=== PATIENT | female | born 1955 | race Caucasian/White ===

== ENCOUNTER 2019-05-17 07:57 | Day surgery (SDC) | payer OTHER ==
[~2019-05-17 07:57] MED LIST: ACETAMINOPHEN 500 MG TABLET PO ONE; CELECOXIB 100 MG CAPSULE PO ONE; CLINDAMYCIN PHOS/D5W 900MG 900 MG/50 ML BAG IVPB ONE; FAMOTIDINE 20MG TABLET PO ONE; METOCLOPRAMIDE 10 MG TABLET PO ONE; SCOPOLAMINE 1 PATCH TDSY TD ONE; VANCOMYCIN 1GM/200ML PREMIX 1 GM/200 ML PIGGYBACK IVPB ONE
[2019-05-17] MEDS ORDERED: LIDOCAINE 2% MDV (20MG/ML) 20ML VIAL IV ONE (07:58)
[2019-05-17] MEDS ORDERED: MIDAZOLAM HCL 2MG/2ML VIAL IV ONE (07:58)
[2019-05-17] MEDS ORDERED: PROPOFOL 10 MG/ML VIAL IV ONE (07:58)
[2019-05-17] MEDS ORDERED: ROPIVACAINE HCL (NAROPIN) /PF 5MG/ML 20ML VIAL IV ONE (07:58)
[2019-05-17] MEDS ORDERED: KETOROLAC 30 MG/ML VIAL IVP ONE (07:58)
[2019-05-17] MEDS ORDERED: *PACU ONLY* KETAMINE HCL 10 MG/ML (20ML) VIAL IV ONE (07:58)
[2019-05-17] MEDS ORDERED: EPHEDRINE SULFATE 50 MG/ML ML IV ONE (07:58)
[2019-05-17] MEDS ORDERED: DEXAMETHASONE 4 MG/ML 1ML VIAL IVP ONE (07:58)
[2019-05-17] MEDS ORDERED: ACETAMINOPHEN 325 MG TAB PO PRN (08:06)
[2019-05-17] MEDS ORDERED: ONDANSETRON HCL IV 4 MG/2 ML VIAL IVP PRN (08:06)
[2019-05-17] MEDS ORDERED: HYDROCODONE/APAP 5/325MG TABLET PO PRN (08:06)
[2019-05-17] MEDS ORDERED: DIPHENHYDRAMINE HCL 25 MG CAPSULE PO PRN (08:06)
[2019-05-17] MEDS ORDERED: AL HYDROX/MAG HYDROX 30ML UD PO PRN (08:06)
[2019-05-17] MEDS ORDERED: METOCLOPRAMIDE HCL 10 MG/2 ML VIAL IVP PRN (08:06)
[2019-05-17] MEDS ORDERED: BISACODYL 10 MG SUPP RC PRN (08:06)
[2019-05-17] MEDS ORDERED: ACETAMINOPHEN W/ CODEINE 300MG/30MG TABLET PO PRN ×2 (08:06)
[2019-05-17] MEDS ORDERED: NALOXONE 0.4 MG/1 ML VIAL IVP PRN (08:06)
[2019-05-17] MEDS ORDERED: HYDROMORPHONE HCL 2 MG/ML VIAL IM PRN ×2 (08:06)
[2019-05-17] MEDS ORDERED: MAGNESIUM HYDROXIDE 30 ML UDC PO PRN (08:06)
[2019-05-17] MEDS ORDERED: TRAMADOL HCL 50 MG TABLET PO PRN ×2 (08:06)
[2019-05-17] MEDS ORDERED: ZOLPIDEM TARTRATE 5 MG TABLET PO PRN (08:06)
[2019-05-17] MEDS ORDERED: ACETAMINOPHEN W/ CODEINE 300MG/60MG TABLET PO PRN (08:06)
[2019-05-17] MEDS ORDERED: KETOROLAC 30 MG/ML VIAL IVP PRN (08:06)
[2019-05-17] MEDS ORDERED: HYDROCODONE/APAP 7.5/325MG TABLET PO PRN (08:06)
[2019-05-17] MEDS ORDERED: DEXTROSE 5 % AND 0.9 % NACL 1,000 ML IV PRN (08:06)
[2019-05-17] MEDS ORDERED: PROMETHAZINE HCL 12.5 MG in 0.9 % SODIUM CHLORIDE 100ML 50 ML IVPB PRN (08:06)
[2019-05-17 08:54] LABS: ABO GROUP O; ANTIBODY SCREEN NEGATIVE (NEGATIVE); RH TYPE POSITIVE
[2019-05-17] MEDS ORDERED: RINGERS SOLUTION,LACTATED 1,000 ML IV ONE ×2 (09:11→12:54)
[2019-05-17] MEDS ORDERED: BUPIVACAINE 0.5% W/EPI MPF 30 ML VIAL SQ ONE (10:57)
[2019-05-17] MEDS ORDERED: TRANEXAMIC ACID 1,000 MG/10 ML ML IU ONE (10:58)
[2019-05-17] MEDS ORDERED: BUPIVACAINE LIPOSOME 266MG/20ML VIAL IU ONE (10:59)
[2019-05-17] MEDS ORDERED: VANCOMYCIN HCL 1 GM VIAL IU ONE (10:59)
[2019-05-17] MEDS ORDERED: TRANEXAMIC ACID 1,000 MG/10 ML ML IVPB ONE (11:00)
[2019-05-17] MEDS ORDERED: VANCOMYCIN HCL 1 GM VIAL IR ONE (11:00)
[2019-05-17] MEDS: HYDROCODONE/APAP 5/325MG TABLET PO PRN ×2 (14:40→20:42)
[2019-05-17] MEDS: AMLODIPINE BESYLATE 5MG TAB PO SCH (14:41)
[2019-05-17] MEDS: HYDROCHLOROTHIAZIDE 25 MG TABLET PO SCH (14:41)
--- NOTE | 2019-05-17 14:41 | Operative Note ---
DATE OF SURGERY: 05/17/2019 PREOPERATIVE DIAGNOSIS: END STAGE RIGHT KNEE ARTHROSIS. POSTOPERATIVE DIAGNOSIS: END STAGE RIGHT KNEE ARTHROSIS. OPERATION: RIGHT TOTAL KNEE ARTHROPLASTY. SURGEON: Julio César Swan M.D. ANESTHESIA: Spinal. ANESTHESIA PROVIDER: BETH Sanchez CRNA COMPLICATIONS: None. BLOOD LOSS: Minimal. OPERATIVE FINDINGS: [id number] arthrosis. COMPONENT PLACED: 2 gram Vancomycin cemented Francois [employer] Nephew Journey II Oxinium a size 5 femoral component, a size 5 tibial baseplate, 11 mm thick tibial poly insert, and 29 mm cemented patellar component. INDICATIONS: This is a 63-year-old female with end stage knee arthrosis who is scheduled for the procedure above. I explained all risks and benefits in detail for the diagnosis and procedure including, but not limited to infection, nerve injury, vessel injury, persistent pain, stiffness, numbness, tingling in the knee, periprosthetic fracture, need for resection arthroplasty if components become infected or loose, nerve injury, vessel injury, blood clot and need for anticoagulation to prevent blood clots and risks associated with the use of these medications. All of her questions were answered. Rehab course was outline. She agreed to proceed. PROCEDURE: The patient was brought to the Operating Room, placed in a supine position, prepped for surgery. Spinal anesthesia was induced. The right lower extremity and knee were prepped and draped in sterile fashion. The right knee was prepped again with ChloraPrep after it was draped. Intraoperative timeout was performed. Next the leg was exsanguinated. again no tourniquet was used, and an anterior incision was marked out and infiltrated with 0.5% Marcaine with Epinephrine, Exparel, and tranexamic acid mixture which were used throughout the entire course of the case and we also used Aquamantys electrocautery during the entire case at different levels. Next, the skin and subcutaneous tissues were dissected down and incised the capsule along the medial border of the patella to the tibial tubercle. Incised the vastus medialis in line with its fibers using the medial lateral approach. Partially resected the retropatellar fat pad. Elevated the capsule subperiosteally and medially. We flexed the knee. She had severe [id number] arthrosis, and removed any remaining meniscus from the ACL. Drilled the intracondylar drill holes, inserted the intramedullary guide benson, a 6-degree cutting block, aligned off the distal femoral condyles and pinned it in the +2 mm position and cut the distal femoral condyles. We then placed a sizing jig on the distal femoral condyle and sized it to be right on size 5. Through the previously placed pin holes, we placed a 5-in-1 cutting jig, we centered it, pinned it and removed osteophytes off the periphery and then recentered it and referenced for an anterior cut and cut the anterior cut, it was a good cut and then we pinned it and cut the remainder of chamfer cuts in the usual fashion. We placed a size 5 femoral component, centered it, pinned it, removed osteophytes off the periphery, had a good fit, inserted a resection collet, and reamed out and box Osteomed out the cruciate bone block. Next attention was turned to the tibia. Seated the spikes in the tubercular groove after exposing the tibia 2 fingerbreadths distally in reference for our 7 mm cut off the lateral plateau. We pinned the cutting jig provisionally with anterior and posterior pins, and then rechecked the alignment cutting jig and drop benson centered on the tibial anatomic access and then cross pinned the cutting jig completing fixation at the tibia. Next we removed osteophytes off the posterior femoral condyle. Checked the flexion/extension gaps, basically sized it up to a size 11 mm thick polyp insert, this allowed for 1-2 mm of varus/valgus laxity and flexion/extension. Overall alignment cuts in extension was anatomic in valgus orientation with alignment benson centered on the hip joint and ankle joint. Next we took the knee in flexion, we sized the tibial baseplate to be a size 5. We replaced all trial components, set the rotation tibial baseplate again extension using the alignment benson centered on the hip joint and ankle joint. Marked all pen ramirez off the laser ramirez on the tibial cortex. Attention was turned to the patella, measured the patella to be 21 mm, set the cutting jig at 12 mm to allow for a 9 mm thick poly insert and cut the patella, and it was right on 12. We chamfered off the lateral patella facet sized to be 29 and medialized as much as possible, drilled three peg holes, placed a trial patellar component and then mixed cement. Range of motion at the patella tracked nicely handsfree, full extension and flexion to 130-140 degrees, again symmetric flexion/extension gap. Next we took the knee in flexion, seated the tibial baseplate off the previously placed ramirez, pinned it and then drilled out and keel punched the keel hole. Next we placed the bone plug in the femoral canal hole and we cauterized the posterior capsule again using Aquamantys and then exposed the proximal tibia and dried it with a CarboJet dryer and then impacted the tibial bone surfaces with cement and then impacted down the tibial component removing excess cement and then the femoral components in the same fashion and removed excess cement. We then placed the trial tibial poly liner, held the knee in extension, and impacted the patellar components and held it there, and clamped down patella component until the cement hardened. We took the knee in flexion, districted the knee with the bone hook and sponge, removed all trial components, irrigated copiously using Aquamantys and we injected the posterior capsule and medial lateral with our mixture again using small sticks, several sticks of the medication and then inserted the tibial poly insert, verified it was interlocked medially and laterally and found the range of motion to be the same. Irrigated copiously, closed the knee in flexion using running #2 Quill suture, closed the skin deep with 2-0 Vicryl, and a LEIGH dressing was applied with an JAY wrap. The patient tolerated the procedure well. No intraoperative complications. Sponge, needle, and blade counts corrects. Recovery Room stable. Neurovascular intact. She was discharged to the floor and then discharged home tomorrow. Follow-up in two weeks. JOB NUMBER: [id number] [facility]
--- NOTE | 2019-05-17 15:15 | Rehab Evaluation ---
Patient Information - Patient Information Diagnosis: R knee DJD Ordered Treatment: PT Evaluate and Treat Status: Initial Evaluation Surgery: Yes (R TKA) Date of Surgery: 05/17/19 Past Medical/Surgical Hx: PAST MEDICAL/SURGICAL HISTORY Past Surgical History SOCORRO APPY C SECTIONS X'S 2 CSCOPES BREAST BX PMH - Respiratory Hx Respiratory Disorders Yes Hx Bronchitis Yes: HX OF Hx Pneumonia Yes: HX OF Comment: PT SNORES PER PMH - Cardiovascular Hx Cardiovascular Disorders Yes Hx Hypertension Yes: FAIR CONTROL ON MEDS Exercise Tolerance Poor PMH - Neuro Hx Neurological Disorders Yes Hx Headaches Yes: OCCASS PMH - GI Hx Gastrointestinal Disorders Yes Hx Gastroesophageal Reflux Yes: CONTROLLED WITH MEDS PMH - Hx Genitourinary Disorders Yes Hx Bladder Problem Yes: "WEAK" PMH - Endocrine Hx Endocrine Disorders No PMH - Musculoskeletal Hx Musculoskeletal Disorders Yes Hx Arthritis Yes: KNEES, HANDS, SHOULDERS PMH - Psych Hx Psychiatric Problems Yes Hx Anxiety Yes Hx Depression Yes PMH - Hematology/Oncology Hx Hematology/Oncology Yes Disorders Hx Anemia Yes: IN THE PAST Hx Bruising Yes: BRUISES EASILY Premorbid Status: Detail (The patient was independent with all mobility prior to surgery.) Social History: Detail (The patient lives with spouse in a one story house with one step at the enterance and no handrails. The bathroom is equipped with: walk in shower with a tub seat and hand held shower head and a standard height toilet. No grab bars are presetn in the bathroom. The patient has a front wheeled walker and a standard cane.) Precautions: Point, Fall, Other (WBAT on the R LE) - Time With Patient Total Time Spent With Patient (Min): 30 Treatment Procedures: Detail (Initial Evaluation, low complexity.) Subjective Information - Subjective Information Per Patient (The patient had no complaints of pain.) Objective Data - Mental Status Patient Orientation: Oriented x3 - Visual Perception Appears within normal limits for therapeutic activities - ROM Not within normal limits (Patient's R knee AROM was limited s/p surgery. All other LE AROM was WNL.) - Strength/Tone Not within normal limits (The patient's LE strength was not tested s/p however was within functional limits.) - Bed Mobility Independent (The patient was independent with supine to and from sit transfer and scooting up in bed.) - Transfers Independent (The patient was independent with sit to and from stand transfer and toilet transfer.) - Balance Balance Sitting: Good Balance Standing: Good - Sensation Intact - Gait Detail (The patient ambulated with front wheeled walker a distance of 100 feet x 1 with supervision for safety WBAT on the R LE.) Therapy Assessment - Therapy Assessment Detail (The patient was independent with bed mobility and transfers and required supervision for safety only with ambulation. The patient will be seen tomorrow for 1 to 2 sessions for completion of PT inpt. goals.) Problem List - Problem List Physical Therapy Problem List: Detail ( Decreased R knee AROM and R LE strength) Goals - Goals Physical Therapy Goals: 1) The patient will ambulate on stairs with supervision for safety using proper technique. 2) The patient will be independent with TKA HEP. Prognosis - Prognosis Good Plan - Plan Physical Therapy Plan: PT 1-2 sessions for gait training and instruction in TKA HEP.
[2019-05-17] MEDS ORDERED: LOSARTAN POTASSIUM 25 MG TABLET PO SCH (22:00)
[2019-05-17] MEDS: VANCOMYCIN 1GM/200ML PREMIX 1 GM/200 ML PIGGYBACK IVPB SCH (22:08)
[2019-05-17] MEDS: FERROUS SULFATE 325 MG TAB PO SCH (22:15)
[2019-05-17] MEDS: DOCUSATE SODIUM 100 MG CAPSULE PO SCH (22:15)
[2019-05-18 06:41] LABS: HEMATOCRIT 37.4 % (35.0-47.0); HEMOGLOBIN 11.9 gm/dl (11.6-16.0)
[2019-05-18] MEDS ORDERED: PANTOPRAZOLE SODIUM 40 MG TABLET PO SCH (07:00)
[2019-05-18] MEDS: AMLODIPINE BESYLATE 5MG TAB PO SCH (09:21)
[2019-05-18] MEDS: HYDROCODONE/APAP 5/325MG TABLET PO PRN (09:21)
[2019-05-18] MEDS: HYDROCHLOROTHIAZIDE 25 MG TABLET PO SCH (09:22)
[2019-05-18] MEDS: FERROUS SULFATE 325 MG TAB PO SCH (09:22)
[2019-05-18] MEDS: DOCUSATE SODIUM 100 MG CAPSULE PO SCH (09:22)
--- NOTE | 2019-05-18 09:49 | Physical Therapy Tx Note ---
Physical Therapy Tx Note - Treatment Note Tolerated: Good Total Time Spent With Patient: 20 Physical Therapy Tx Note: Detail (The patient was in bed when PT arrived and complaining of level 8 pain behind R knee. The patient ambulated with front wheeled walker a distance of 100 feet x 1 independently WBAT on the R LE. The patient ambulated on 3 steps with use of one railing and folded walker with supervision for safety. The patient completed TKA HEP: ankle pumps, quad sets, gluteal sets, hamstring sets, SLR, seated heel slides.) Physical Therapy Problem List: Detail ( Decreased R knee AROM and R LE strength) Physical Therapy Goals: 1) The patient will ambulate on stairs with supervision for safety using proper technique. 2) The patient will be independent with TKA HEP. Physical Therapy Plan: PT 1-2 sessions for gait training and instruction in TKA HEP.
--- NOTE | 2019-05-18 09:51 | Physical Therapy Tx Note ---
Physical Therapy Tx Note - Treatment Note Tolerated: Good Physical Therapy Tx Note: Detail (addendum to previous note. The patient has met all inpt. PT goals and is discharged from inpt. PT.) Physical Therapy Problem List: Detail ( Decreased R knee AROM and R LE strength) Physical Therapy Goals: 1) The patient will ambulate on stairs with supervision for safety using proper technique.(Goal Met). 2) The patient will be independent with TKA HEP.(Goal Met) Physical Therapy Plan: The patient has met all inpt. PT goals and is discharged from inpt. PT.
[2019-05-18] MEDS ORDERED: ATENOLOL 50 MG TABLET PO SCH (10:00)
[2019-05-18] MEDS ORDERED: RIVAROXABAN 10 MG TABLET PO SCH (10:00)
[2019-05-18] MEDS ORDERED: LOSARTAN POTASSIUM 100 MG TABLET PO SCH (10:00)
[2019-05-18] MEDS ORDERED: CELECOXIB 100 MG CAPSULE PO SCH (10:00)
[2019-05-18] MEDS ORDERED: VENLAFAXINE ER 37.5 MG CAPSULE PO SCH (10:00)
[2019-05-18] MEDS: VANCOMYCIN 1GM/200ML PREMIX 1 GM/200 ML PIGGYBACK IVPB SCH (10:19)
--- NOTE | 2019-05-18 10:28 | Rehab Evaluation ---
Patient Information - Patient Information Diagnosis: R knee DJD Ordered Treatment: OT Evaluate and Treat Status: Initial Evaluation Surgery: Yes (R TKA) Date of Surgery: 05/17/19 Past Medical/Surgical Hx: PAST MEDICAL/SURGICAL HISTORY Past Surgical History SOCORRO APPY C SECTIONS X'S 2 CSCOPES BREAST BX PMH - Respiratory Hx Respiratory Disorders Yes Hx Bronchitis Yes: HX OF Hx Pneumonia Yes: HX OF Comment: PT SNORES PER PMH - Cardiovascular Hx Cardiovascular Disorders Yes Hx Hypertension Yes: FAIR CONTROL ON MEDS Exercise Tolerance Poor PMH - Neuro Hx Neurological Disorders Yes Hx Headaches Yes: OCCASS PMH - GI Hx Gastrointestinal Disorders Yes Hx Gastroesophageal Reflux Yes: CONTROLLED WITH MEDS PMH - Hx Genitourinary Disorders Yes Hx Bladder Problem Yes: "WEAK" PMH - Endocrine Hx Endocrine Disorders No PMH - Musculoskeletal Hx Musculoskeletal Disorders Yes Hx Arthritis Yes: KNEES, HANDS, SHOULDERS PMH - Psych Hx Psychiatric Problems Yes Hx Anxiety Yes Hx Depression Yes PMH - Hematology/Oncology Hx Hematology/Oncology Yes Disorders Hx Anemia Yes: IN THE PAST Hx Bruising Yes: BRUISES EASILY Premorbid Status: Detail (The patient was independent with all mobility prior to surgery. She and spouse shared all home mgmt, meal prep and laundry tasks.) Social History: Detail (The patient lives with spouse in a one story house with one step at the entrance and no handrails. The bathroom is equipped with: walk in shower with a tub seat and hand held shower head and a standard height toilet. No grab bars are present in the bathroom. The patient has a front wheeled walker and a standard cane.) Precautions: [place], Fall, Other (WBAT on the R LE) - Time With Patient Total Time Spent With Patient (Min): 40 Treatment Procedures: Detail (OT eval low complexity) Subjective Information - Subjective Information Per Patient Objective Data - Pain Pain Present: Yes (01/28) - Mental Status Patient Orientation: Oriented x3 - Visual Perception Appears within normal limits for therapeutic activities - ROM Within normal limits (Maxime UE AROM WNL) - Strength/Tone Within normal limits (Maxime UE strength WNL) - Coordination Appears within normal limits for therapeutic activities - Bed Mobility Independent (Ind with supine to sit and sit to supine) - Transfers Independent (Ind with sit to stand from EOB) - Balance Balance Sitting: Good Balance Standing: Good - Sensation Intact - Gait Detail (Pt ambulating in room with 2 wheeled walker and supervision) - ADL's/IADL's Detail (Pt educated and able to demonstrate learning of modified LE dressing techniques including donning sravani socks (with assist), pants, socks and tennis shoes. Reviewed kitchen and shower safety and modifications, pt verbalized understanding.) Therapy Assessment - Therapy Assessment Detail (Pt is Ind with modified LE dressing techniques.) Problem List - Problem List Physical Therapy Problem List: Detail ( Decreased R knee AROM and R LE strength) Occupational Therapy Problem List: Detail (No current IP OT problems identified.) Goals - Goals Physical Therapy Goals: 1) The patient will ambulate on stairs with supervision for safety using proper technique.(Goal Met). 2) The patient will be independent with TKA HEP.(Goal Met) Occupational Therapy Goals: No current IP OT goals identified. Prognosis - Prognosis Good Plan - Plan Physical Therapy Plan: The patient has met all inpt. PT goals and is discharged from inpt. PT. Occupational Therapy Plan: Pt is discharged from IP OT. Thank you for this referral.
== END 2019-05-18 12:15 | disposition home health service (06) ==
LOC: SUR 07:57 → MEDSURG 13:11 → SUR 05-18 12:15
PROVIDERS: ATTEND Orthopaedic Surgery
DX: M17.11 Unilateral primary osteoarthritis, right knee (principal); I10 Essential (primary) hypertension; K21.9 Gastro-esophageal reflux disease without esophagitis
CPT/HCPCS: 27447; 01402; 64447; 85018; 85014; 86900; 86901; 86850; 94010; C1776 ×3; J1885; J3370 ×3; C9290; J2795; J3490; J7042; J7120